=== PATIENT | female | born 1990 | race Caucasian/White ===

== ENCOUNTER 2020-02-26 13:15 | Emergency (ER) | payer OTHER, SELFPAY ==
[2020-02-26 13:30] VITALS: BP 103/67; PULSE 78; RESP 16; TEMP 38; O2SAT 98
--- NOTE | 2020-02-26 13:43 | ED.GENADULT ---
HPI - General Adult General Chief complaint: Upper Respiratory Infection Stated complaint: sore throat Time Seen by Provider: 02/26/20 13:43 Source: patient Mode of arrival: ambulatory Limitations: no limitations History of Present Illness HPI narrative: 29-year-old female patient presents to the [facility] with complaints of a sore throat, bilateral ear pain but not more so on the right than the left. Patient states she has had a mild cough as well. Denies any body aches or chills. Denies any fevers that she is aware of. Denies any abdominal pain, nausea, vomiting or diarrhea. Related Data Allergies Allergy/AdvReac Type Severity Reaction Status Date / Time acetaminophen AdvReac Intermediate Confusion Verified 02/26/20 13:48 oxycodone AdvReac Intermediate Confusion Verified 02/26/20 13:48 NICKEL Allergy Mild RASH AND Uncoded 04/15/19 15:13 LOCALIZED SWELLING Review of Systems Review of Systems: Narrative: CONSTITUTIONAL: Denies fever, chills, or sweats. EYES: Denies visual changes, redness, or discharge. ENT: Denies rhinorrhea, congestion, positive sore throat, and otalgia. CARDIOVASCULAR: Denies chest pain, palpitations, or edema. RESPIRATORY: Positive cough, denies dyspnea. GASTROINTESTINAL: Denies abdominal pain, nausea, vomiting, or diarrhea. GENITOURINARY: Denies dysuria or hematuria. SKIN: Denies rash or itching. MUSCULOSKELETAL: Denies back pain, joint pain, or myalgia. NEUROLOGIC: Denies headache, numbness, or weakness. PSYCHIATRIC: Denies anxiety or depression. PMFSH Comments At the time of my signature I agree with nursing past medical history, surgical, social, and family history. There is no relevant family history pertinent to the presenting complaint. Exam Narrative: Exam Narrative: GENERAL: Well-appearing, well-nourished, and in no acute distress. HEAD: Normocephalic, atraumatic. EYES: PERRLA and EOMI. ENT: Nares clear, no rhinorrhea or epistaxis. Mucous membranes moist. Posterior pharynx with no erythema, tonsil management, exudates or lesions present. The right TM does have some here erythema noted. The canal appears dry. NECK: Supple. No lymphadenopathy CHEST: Clear to auscultation. No respiratory distress. HEART: Regular rate and rhythm. No murmur heard. Normal peripheral pulses. ABDOMEN: Soft, nontender, nondistended, normal active bowel sounds. EXTREMITIES: Normal range of motion. No edema. SKIN: Warm, dry, no rash. NEURO: No focal deficits. Alert and oriented x3. Course Reevaluation(s) Reevaluation #1: Reevaluated patient after her swabs had resulted. Notified patient that she is negative for flu and strep today. Discussed with her it does appear that she has an infection to the right ear that we will go ahead and discharge her home with antibiotics for. Offered to send patient for Covid testing however she has declined at this time. Discussed with patient she can take Tylenol, ibuprofen as needed for pain. Patient verbalized understanding denies any other questions or concerns at this time. Date: 02/26/20 Time: 14:15 Vital Signs Vital signs: Vital Signs Temperature 38.0 C H 02/26/20 13:30 Pulse Rate 78 02/26/20 13:30 Respiratory Rate 16 02/26/20 13:30 Blood Pressure 103/67 02/26/20 13:30 Pulse Oximetry 98 02/26/20 13:30 Temperature 38.0 C H 02/26/20 13:30 Pulse Rate 78 02/26/20 13:30 Respiratory Rate 16 02/26/20 13:30 Blood Pressure 103/67 02/26/20 13:30 Pulse Oximetry 98 02/26/20 13:30 Vital signs reviewed Medical Decision Making Differential Diagnosis Differential Diagnosis: Differential diagnosis: Viral pharyngitis, pharyngitis, group A strep, infectious mononucleosis, gonococcal pharyngitis, exudative pharyngitis, oral candidiasis. Chronic allergies, postnasal drip, GERD, abscess formation, but glottitis, retropharyngeal abscess formation, or airway obstruction. Plan of care for patient is to swab patient for flu and strep. Discusse
== END 2020-02-26 14:19 | disposition home or self-care (01) ==
PROVIDERS: Emergency Provider Nurse Practitioner Family; PCP Nurse Practitioner Family
DX: H66.91 Otitis media, unspecified, right ear (principal)
CPT/HCPCS: 87081; 87804; 87880; 99213; G0463

== ENCOUNTER 2020-03-29 10:54 | Emergency (ER) | payer OTHER, SELFPAY ==
[2020-03-29 11:00] VITALS: BP 132/73; PULSE 103; RESP 18; TEMP 37.7; O2SAT 100
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
== END 2020-03-29 12:36 | disposition home or self-care (01) ==
PROVIDERS: Emergency Provider Registered Nurse
DX: J06.9 Acute upper respiratory infection, unspecified (principal); R10.13 Epigastric pain; R11.2 Nausea with vomiting, unspecified; R19.7 Diarrhea, unspecified; F17.210 Nicotine dependence, cigarettes, uncomplicated; J45.909 Unspecified asthma, uncomplicated
CPT/HCPCS: 87081; 87804; 87880; 99213; G0463

== ENCOUNTER 2020-06-29 08:20 | Emergency (ER) | payer OTHER, SELFPAY ==
[2020-06-29 08:28] VITALS: BP 120/72; PULSE 92; RESP 16; TEMP 36.9; O2SAT 100
--- NOTE | 2020-06-29 08:57 | ED.SKABFB ---
HPI - Skin/Abscess/Foreign Bdy General Chief complaint: Skin/Abscess/Foreign Body Stated complaint: rash all over Time Seen by Provider: 06/29/20 08:36 Source: patient and RN notes reviewed Mode of arrival: ambulatory Limitations: no limitations History of Present Illness HPI narrative: Patient presents today with a 4 to 5-day history of itching behind both ears. States itching and rash as spread to her face and bilateral arms today. She has been using Benadryl with mild relief. No new household products, foods, medications. No symptoms of other household members. MD complaint: rash Related Data Home Medications Medication Instructions Recorded Confirmed medroxyprogesterone 150 mg IM Q12M 06/29/20 06/29/20 terbinafine HCl 250 mg PO DAILY 06/29/20 06/29/20 Allergies Allergy/AdvReac Type Severity Reaction Status Date / Time acetaminophen AdvReac Intermediate Confusion Verified 06/29/20 08:24 oxycodone AdvReac Intermediate Confusion Verified 06/29/20 08:24 NICKEL Allergy Mild RASH AND Uncoded 06/29/20 08:24 LOCALIZED SWELLING Review of Systems Review of Systems: Narrative: CONSTITUTIONAL: Denies body aches, fever, chills, or sweats. EYES: Denies visual changes, redness, or discharge. ENT: Denies rhinorrhea, congestion, sore throat, or otalgia. CARDIOVASCULAR: Denies chest pain, palpitations, or edema. RESPIRATORY: Denies cough or dyspnea. GASTROINTESTINAL: Denies abdominal pain, nausea, vomiting, or diarrhea. GENITOURINARY: Denies dysuria or hematuria. SKIN: + Rash MUSCULOSKELETAL: Denies back pain, joint pain, or myalgia. NEUROLOGIC: Denies headache, numbness, tingling, or weakness. PSYCH: Denies depression or anxiety. [facility] Past Medical History Medical History (Updated 06/29/20 @ 09:01 by Tisha Suazo, [facility], ) Kidney stone Lipoma removed from upper back Right otitis media Surgical History Surgical History (Updated 03/30/20 @ 16:35 by Rubi Dale NP) H/O lithotripsy S/P ureteral stent placement Social History Social History (Updated 03/29/20 @ 11:53 by Rubi Dale NP) Smoking packs per day: 0.5 Smoking cigarettes per day: 10.0 Years smoked: 8 Smoking pack-years: 4.00 Smoking status: Current every day smoker Tobacco type: cigarettes Alcohol intake: current Gender identity (if verbalized by the patient): Female Comments At time of signature, I have reviewed and agree with nursing past medical, surgical, social and family history unless otherwise noted. Please see nursing chart for further information. There is no relevant family history pertinent to the presenting complaint Exam Narrative: Exam Narrative: GENERAL: Well-appearing, well-nourished, and in no acute distress. HEAD: Normocephalic, atraumatic. EYES: EOMI. No redness or drainage. Conjunctivae normal. ENT: Mucous membranes pink and moist. Nares clear. No rhinorrhea. TMs normal bilaterally. Throat normal. Uvula midline. NECK: Normal AROM. Supple. No lymphadenopathy. CHEST: No respiratory distress. Clear to auscultation. HEART: Regular rate and rhythm. No murmur appreciated. Normal peripheral pulses. EXTREMITIES: Normal range of motion. No edema. SKIN: Warm, dry. Capillary refill normal. Normal skin turgor. + Urticarial rash spread over both cheeks, in the bilateral postauricular areas, circumferentially around the neck, and scattered to the bilateral forearms and antecubital fossa NEURO: No focal deficits. Alert and oriented x3. Gait steady. PSYCH: Normal affect. No signs of depression or anxiety. Course Vital Signs Vital signs: Vital Signs Temperature 98.4 F 06/29/20 08:28 Pulse Rate 92 06/29/20 08:28 Respiratory Rate 16 06/29/20 08:28 Blood Pressure 120/72 06/29/20 08:28 Pulse Oximetry 100 06/29/20 08:28 Temperature 98.4 F 06/29/20 08:28 Pulse Rate 92 06/29/20 08:28 Respiratory Rate 16 06/29/20 08:28 Blood Pressure 120/72 06/29/20 08:28
== END 2020-06-29 09:05 | disposition home or self-care (01) ==
PROVIDERS: Emergency Provider Nurse Practitioner; PCP Family Medicine
DX: L50.9 Urticaria, unspecified (principal); F17.210 Nicotine dependence, cigarettes, uncomplicated
CPT/HCPCS: 99213; G0463

== ENCOUNTER 2021-03-11 11:01 | Emergency (ER) | payer OTHER, SELFPAY ==
[2021-03-11 11:07] VITALS: BP 113/81; PULSE 95; RESP 16; TEMP 37.4; O2SAT 100
--- NOTE | 2021-03-11 11:20 | ED.SKABFB ---
HPI - Skin/Abscess/Foreign Bdy General Chief complaint: Skin/Abscess/Foreign Body Stated complaint: Facial Swelling Time Seen by Provider: 03/11/21 11:20 Source: patient and RN notes reviewed Mode of arrival: ambulatory Limitations: no limitations History of Present Illness HPI narrative: 30-year-old female presents with concern for painful facial swelling to the right cheek. Reports the area started out as a pimple and has become larger, redder, tender with the pain spreading toward the cheek in the eye. Reports she squeezed it yesterday and got out a small amount of pus and clear fluid. Denies other intervention. Denies body aches, chills, sweats, fever. MD complaint: abscess/boil Related Data Home Medications Medication Instructions Recorded Confirmed albuterol 90 mcg INHALATION Q4H PRN 03/11/21 03/11/21 famotidine 20 mg PO Q8H 03/11/21 03/11/21 hyoscyamine 0.125 mg PO Q6H 03/11/21 03/11/21 omeprazole 20 mg PO BID 03/11/21 03/11/21 Allergies Allergy/AdvReac Type Severity Reaction Status Date / Time acetaminophen AdvReac Intermediate Confusion Verified 03/11/21 11:19 oxycodone AdvReac Intermediate Confusion Verified 03/11/21 11:19 NICKEL Allergy Mild RASH AND Uncoded 06/29/20 08:24 LOCALIZED SWELLING Review of Systems Review of Systems: CONSTITUTIONAL: Denies malaise, chills, sweats, or fever. EYES: Denies visual changes, redness, or discharge. ENT: Denies rhinorrhea, congestion, sinus pain, otalgia or sore throat. CARDIOVASCULAR: Denies chest pain, palpitations, or edema. RESPIRATORY: Denies cough or dyspnea. SKIN: Reports red tender bump with surrounding pain on the right cheek MUSCULOSKELETAL: Denies myalgia. NEUROLOGIC: Denies numbness, weakness, or headache. All systems reviewed & are unremarkable except as noted in HPI and below PMFSH Past Medical History Medical History (Updated 03/11/21 @ 11:49 by Lena Marin NP) Kidney stone Lipoma removed from upper back Right otitis media Surgical History Surgical History (Updated 03/30/20 @ 16:35 by Rubi Dale NP) H/O lithotripsy S/P ureteral stent placement Social History Social History (Updated 03/29/20 @ 11:53 by Rubi Dale NP) Smoking packs per day: 0.5 Smoking cigarettes per day: 10.0 Years smoked: 8 Smoking pack-years: 4.00 Smoking status: Current every day smoker Tobacco type: cigarettes Alcohol intake: current Gender identity (if verbalized by the patient): Female Comments At time of signature, agree with nursing past medical, surgical, social and family history. There is no relevant family history pertinent to the presenting complaint Exam Narrative: GENERAL: Well-appearing, well-nourished, and in no acute distress. HEAD: Normocephalic, atraumatic. EYES: PERRLA, conjunctivae clear, and EOMI. ENT: Mucous membranes moist. Oropharynx without edema, erythema or lesions. NECK: Supple. No lymphadenopathy CHEST: Clear to auscultation. No respiratory distress. HEART: Regular rate and rhythm. SKIN: Warm, dry. Patches of erythema and edema NEURO: Alert and oriented x3. PSYCH: Normal mood and affect Course Course Emergency Course: Patient is aware of diagnosis, understands and agrees to treatment plan. Anticipatory guidance given. Patient agrees to follow-up as directed and is aware of reasons to seek care at the emergency department. Portions of this record may have been created with voice recognition software Vital Signs Vital signs: Vital Signs Temperature 99.4 F 03/11/21 11:07 Pulse Rate 95 03/11/21 11:07 Respiratory Rate 16 03/11/21 11:07 Blood Pressure 113/81 03/11/21 11:07 Pulse Oximetry 100 03/11/21 11:07 Temperature 99.4 F 03/11/21 11:07 Pulse Rate 95 03/11/21 11:07 Respiratory Rate 16 03/11/21 11:07 Blood Pressure 113/81 03/11/21 11:07 Pulse Oximetry 100 03/11/21 11:07 Reviewed. Procedures Abscess I/D face: Date of Incision
[2021-03-11 11:23] VITALS: BP 113/81; PULSE 95; RESP 16; TEMP 37.4; O2SAT 100
--- NOTE | 2021-03-11 11:38 | PC.NURSE ---
1138-- RN ADMINISTERED ROCEPHIN 500 MG IM TO RT GLUTEAL ORDERED BY PROVIDER. MEDICATION WOULD NOT SCAN IN COMPUTER.
== END 2021-03-11 11:56 | disposition home or self-care (01) ==
PROVIDERS: Emergency Provider Nurse Practitioner
DX: L02.01 Cutaneous abscess of face (principal); F17.210 Nicotine dependence, cigarettes, uncomplicated
CPT/HCPCS: 10160; 96372; 99213; G0463; J0696

== ENCOUNTER 2021-08-03 12:18 | Emergency (ER) | payer OTHER, SELFPAY ==
--- NOTE | 2021-08-03 12:20 | ED.URI ---
HPI - URI/Sore Throat General Chief Complaint: Upper Respiratory Infection Stated Complaint: Cough Time Seen by Provider: 08/03/21 12:21 Source: patient and RN notes reviewed History of Present Illness HPI Narrative: Patient is a 31-year-old female who presents the urgent care with complaints of cough that started 3 days ago. There are 2 other family members in the home that are positive for influenza A. Patient denies of any fevers, nausea or vomiting. Patient has not taken anything [id number] for her symptoms. No other acute complaints. No acute distress noted. Patient aware of the plan of care. Some parts of this dictation were generated by voice recognition software and may contain typographical and/or grammatical inaccuracies. Related Data Home Medications Medication Instructions Recorded Confirmed albuterol 90 mcg INHALATION Q4H PRN 03/11/21 03/11/21 famotidine 20 mg PO Q8H 03/11/21 03/11/21 Allergies Allergy/AdvReac Type Severity Reaction Status Date / Time acetaminophen AdvReac Intermediate Confusion Verified 08/03/21 12:23 oxycodone AdvReac Intermediate Confusion Verified 08/03/21 12:23 NICKEL Allergy Mild RASH AND Uncoded 08/03/21 12:45 LOCALIZED SWELLING Review of Systems Review of Systems: CONSTITUTIONAL: Denies fever, chills, or sweats. EYES: Denies visual changes, redness, or discharge. ENT: Denies rhinorrhea, congestion, sore throat, or otalgia. CARDIOVASCULAR: Denies chest pain, palpitations, or edema. RESPIRATORY: Reports of cough without dyspnea GASTROINTESTINAL: Denies abdominal pain, nausea, vomiting, or diarrhea. GENITOURINARY: Denies dysuria or hematuria. SKIN: Denies rash or itching. MUSCULOSKELETAL: Denies back pain, joint pain, or myalgia. NEUROLOGIC: Denies headache, numbness, or weakness. All other systems reviewed are negative, except as documented in HPI. [facility] Past Medical History Medical History (Updated 08/03/21 @ 12:56 by TODD Gutierrez) Kidney stone Lipoma removed from upper back Right otitis media Surgical History Surgical History (Updated 03/30/20 @ 16:35 by Rubi Dale NP) H/O lithotripsy S/P ureteral stent placement Social History Social History (Updated 03/29/20 @ 11:53 by Rubi Dale NP) Smoking packs per day: 0.5 Smoking cigarettes per day: 10.0 Years smoked: 8 Smoking pack-years: 4.00 Smoking status: Current every day smoker Tobacco type: cigarettes Alcohol intake: current Gender identity (if verbalized by the patient): Female Comments At the time of my signature, I reviewed and agree with the nursing past medical, surgical, social, and family history. There is no relevant family history pertinent to the patient complaint. Exam Narrative: GENERAL: This is a well-nourished, well-developed patient, in no apparent distress. HEAD: normocephalic, atraumatic. EYES: PERRL. Sclera clear/white. Vision is grossly intact. EARS: External ears normal, auditory canals clear and without drainage, TMs normal without perforation. Hearing grossly intact. NOSE: External nose normal with no obvious nasal discharge, nares without redness, no rhinorrhea. THROAT: Mucous membranes moist, posterior pharynx clear. Mild postnasal drainage NECK: Neck supple CARDIOVASCULAR: Regular rate and rhythm without murmurs, gallops, or rubs. RESPIRATORY: Clear to auscultation. Breath sounds equal bilaterally. No wheezes, rales, or rhonchi. SKIN: warm, intact with no suspicious lesions or rash, good texture and turgor. NEURO: awake, alert, and oriented to person, place and time. There were no obvious focal neurologic abnormalities. EXTREMITIES: No clubbing, cyanosis, or edema. Course Course Level of Care: Express Care Visit Vital Signs Vital signs: Vital Signs Temperature 99.2 F 08/03/21 12:28 Pulse Rate 72 08/03/21 12:28 Respiratory Rate 16 08/03/21 12:28 Blood Pressure 110/70 08/03/21 12:28 Pulse Oximetry 100
[2021-08-03 12:28] VITALS: BP 110/70; PULSE 72; RESP 16; TEMP 37.3; O2SAT 100
== END 2021-08-03 12:54 | disposition home or self-care (01) ==
PROVIDERS: Emergency Provider Nurse Practitioner Family
DX: R05.9 Cough, unspecified (principal); Z20.828 Contact with and (suspected) exposure to other viral communicable diseases; F17.210 Nicotine dependence, cigarettes, uncomplicated
CPT/HCPCS: 87804; 99213; G0463

== ENCOUNTER 2022-01-26 09:41 | Emergency (ER) | payer OTHER, SELFPAY ==
--- NOTE | 2022-01-26 09:44 | ED.URI ---
HPI - URI/Sore Throat General Chief Complaint: Upper Respiratory Infection Stated Complaint: Cough Congestion headache Time Seen by Provider: 01/26/22 09:44 Source: patient Mode of arrival: ambulatory Limitations: no limitations History of Present Illness HPI Narrative: Ms. farrar is a 31-year-old female patient presenting to the clinic today with complaints of cough, congestion, and headache x4 days. She reports also having aches in her back. She denies any urinary symptoms. She reports she has had sinus headaches. She denies any known fevers. She also has 2 sick children in the clinic today with her MD elicited complaint: cough, nasal congestion and other (Headache) Related Data Allergies Allergy/AdvReac Type Severity Reaction Status Date / Time acetaminophen AdvReac Intermediate Confusion Verified 01/26/22 10:00 oxycodone AdvReac Intermediate Confusion Verified 01/26/22 10:00 NICKEL Allergy Mild RASH AND Uncoded 08/03/21 12:45 LOCALIZED SWELLING Review of Systems Review of Systems: Pertinent positives per HPI. Patient denies any fever, chills, rash, headache, visual changes, dizziness, shortness of breath, chest pain, palpitations, nausea, vomiting, diarrhea, constipation, abdominal pain, or any urinary issues. [facility] Past Medical History Medical History Kidney stone Lipoma removed from upper back Right otitis media Surgical History Surgical History H/O lithotripsy S/P ureteral stent placement Social History Social History Smoking packs per day: 0.5 Smoking cigarettes per day: 10.0 Years smoked: 8 Smoking pack-years: 4.00 Smoking status: Current every day smoker Tobacco type: cigarettes Alcohol intake: current Gender identity (if verbalized by the patient): Female Comments At the time of my signature, I reviewed and agree with the nursing past medical, surgical, social, and family history. There is no relevant family history pertinent to the patient complaint. Exam Narrative: General: Well-developed, well nourished, in no apparent distress Head: Normocephalic, atraumatic Eyes: Pupils equally round and reactive to light bilaterally, EOM intact, sclera and conjunctive clear, no discharge, lids normal Ears: TMs intact, dull, red, ear canals clear, no drainage, grossly hearing normal. Nose: Nares patent, clear nasal discharge, mild inflammation, mild maxillary and frontal sinus tenderness. Mouth: Oral pharynx without lesions or masses, good dentition, MMM. Postnasal drip Neck: Supple, trachea midline, no enlargement of anterior or posterior cervical nodes, no thyroid masses or goiter palpable. Cardio: Regular rate and rhythm, s1 and s2 normal, no murmur appreciated. Resp: Clear to auscultation bilaterally, no rhonchi, rales, wheezing or rubs Course Course Emergency Course: Portions of this record may have been created with voice recognition software. Level of Care: Express Care Visit Vital Signs Vital signs: Vital signs reviewed MDM - URI/Sore Throat MDM Narrative Medical decision making narrative: At the time of visit patient is resting comfortably on the exam table. COVID and influenza testing was obtained in the clinic today. All testing was negative in the clinic today. I suspect the patient has sinusitis with viral syndrome. Supportive measures were discussed with the patient she voiced understanding of discharge instructions and agrees to treatment plan. Prescription was sent for prednisone. Differential Diagnosis Differential diagnosis: Likely upper respiratory infection, otitis media, sinusitis, viral infection, bronchitis, influenza, pharyngitis and other (COVID) Discharge Plan Discharge Clinical Impression: Acute upper respiratory infection Sinusitis Qualifiers: Sin
[2022-01-26 09:46] VITALS: BP 106/76; PULSE 86; RESP 14; TEMP 36.9; O2SAT 100
== END 2022-01-26 10:56 | disposition home or self-care (01) ==
PROVIDERS: Emergency Provider Nurse Practitioner Family; PCP Family Medicine
DX: J06.9 Acute upper respiratory infection, unspecified (principal); J01.10 Acute frontal sinusitis, unspecified; Z20.822 Contact with and (suspected) exposure to COVID-19; F17.210 Nicotine dependence, cigarettes, uncomplicated
CPT/HCPCS: 87426; 87804; 99213; C9803; G0463

== ENCOUNTER 2022-02-08 08:33 | Emergency (ER) | payer OTHER, SELFPAY ==
[2022-02-08 08:39] VITALS: BP 105/76; PULSE 83; RESP 16; TEMP 36.8; O2SAT 100
--- NOTE | 2022-02-08 08:44 | ED.EYEPROB ---
HPI - Eye Problem General Chief complaint: Eye Problems Stated complaint: Eye Problem Time Seen by Provider: 02/08/22 08:44 Source: patient, RN notes reviewed and old records reviewed Mode of arrival: ambulatory Limitations: no limitations History of Present Illness HPI Narrative: 31-year-old female who presents to [facility] with complaints of redness itching of eye which started originally yesterday on her right eye. This morning she woke with both eyes matted with yellowish drainage, and itching to bilateral eyes. She has been using warm compresses to her eyes without improvement. Denies any fevers chills or sweats was previously treated for URI on 01/26/2022. Visual acuity 20/20 bilateral eyes with no corrective lenses. MD chief complaint: eye redness Onset (ago): day(s) (1) Eye Symptoms: redness, itching and discharge Treatments Prior to Arrival: other (warm compresses) Related Data Allergies Allergy/AdvReac Type Severity Reaction Status Date / Time acetaminophen AdvReac Intermediate Confusion Verified 02/08/22 08:52 oxycodone AdvReac Intermediate Confusion Verified 02/08/22 08:52 NICKEL Allergy Mild RASH AND Uncoded 02/08/22 08:52 LOCALIZED SWELLING Review of Systems Review of Systems: CONSTITUTIONAL: Denies fever, chills, or sweats. EYES: Denies visual changes. Reports redness, irritation, discharge bilateral eyes ENT: Reports rhinorrhea, congestion, no sore throat, or otalgia. CARDIOVASCULAR: Denies chest pain, palpitations, or edema. RESPIRATORY: Reports cough no dyspnea. SKIN: Denies rash or itching. NEUROLOGIC: Denies headache All systems reviewed & are unremarkable except as noted in HPI and below PMFSH Past Medical History Medical History Kidney stone Lipoma removed from upper back Right otitis media Surgical History Surgical History H/O lithotripsy S/P ureteral stent placement Social History Social History (Updated 02/08/22 @ 23:53 by Rubi Dale NP) Smoking packs per day: 0.5 Smoking cigarettes per day: 10.0 Years smoked: 8 Smoking pack-years: 4.00 Smoking status: Current every day smoker Tobacco type: cigarettes and e-cigarettes/vaping Alcohol intake: current Gender identity (if verbalized by the patient): Female Comments At time of signature, agree with nursing past medical, surgical, social and family history. There is no relevant family history pertinent to the presenting complaint Exam Narrative: GENERAL: Well-appearing, well-nourished, and in no acute distress. HEAD: Normocephalic, atraumatic. EYES: PERRLA and EOMI. Upper and lower eyelids unremarkable. No periorbital cellulitis noted. Sclera and conjunctivae injected, yellowish drainage noted to bilateral eyes ENT: Nares clear, clear rhinorrhea no epistaxis. Mucous membranes moist.TM's normal with good light reflex, throat pink with no swelling. CHEST: Clear to auscultation. No respiratory distress.SAO2 100% on room air HEART: Regular rate and rhythm. No murmur heard. Normal peripheral pulses. SKIN: Warm, dry, no rash. NEURO: No focal deficits. Alert and oriented x3. Course Course Emergency Course: Patient is aware of diagnosis, understands and agrees to treatment plan. Anticipatory guidance given. Patient agrees to follow-up as directed and is aware of reasons to seek care at the emergency department. Portions of this record may have been created with voice recognition software Level of Care: Express Care Visit Vital Signs Vital signs: Vital Signs Temperature 36.8 C 02/08/22 08:39 Pulse Rate 83 02/08/22 08:39 Respiratory Rate 16 02/08/22 08:39 Blood Pressure 105/76 02/08/22 08:39 Pulse Oximetry 100 02/08/22 08:39 Oxygen Delivery Room Air 02/08/22 08:39 Temperature 36.8 C 02/08/22 08:39 Pulse Rate 83 02/08/22 08:39 Respiratory Rate 16 02/08
== END 2022-02-08 09:15 | disposition home or self-care (01) ==
PROVIDERS: Emergency Provider Registered Nurse; PCP Family Medicine
DX: H10.9 Unspecified conjunctivitis (principal); F17.210 Nicotine dependence, cigarettes, uncomplicated; F17.290 Nicotine dependence, other tobacco product, uncomplicated
CPT/HCPCS: 99213; G0463

== ENCOUNTER 2022-07-29 09:32 | Emergency (ER) | payer OTHER, SELFPAY ==
[2022-07-29 09:37] VITALS: BP 104/74; PULSE 89; RESP 18; TEMP 37; O2SAT 100
--- NOTE | 2022-07-29 10:02 | ED.URI ---
HPI - URI/Sore Throat General Chief Complaint: Upper Respiratory Infection Stated Complaint: Sore Throat Time Seen by Provider: 07/29/22 10:02 History of Present Illness HPI Narrative: Patient presents with sore throat. Patient denies any other symptoms no trouble swallowing and no drooling. Patient is not taking anything for her symptoms. Related Data Home Medications Medication Instructions Recorded Confirmed No Home Medications 07/29/22 07/29/22 Allergies Allergy/AdvReac Type Severity Reaction Status Date / Time acetaminophen AdvReac Intermediate Confusion Verified 07/29/22 09:57 oxycodone AdvReac Intermediate Confusion Verified 07/29/22 09:57 NICKEL Allergy Mild RASH AND Uncoded 02/08/22 08:52 LOCALIZED SWELLING Review of Systems Review of Systems: CONSTITUTIONAL: Denies chills, or sweats. Reports fever and generalized body aches EYES: Denies visual changes, redness, or discharge. ENT: Denies otalgia. Reports nasal congestion runny nose and sore throat CARDIOVASCULAR: Denies chest pain, palpitations, or edema. RESPIRATORY: Denies dyspnea. Reports occasional cough GASTROINTESTINAL: Denies abdominal pain, nausea, vomiting, or diarrhea. GENITOURINARY: Denies dysuria or hematuria. SKIN: Denies rash or itching. MUSCULOSKELETAL: Denies back pain, joint pain, or myalgia. Reports generalized body aches NEUROLOGIC: Denies headache, numbness, or weakness. PSYCHIATRIC: Denies anxiety or depression. [facility] Past Medical History Medical History Kidney stone Lipoma removed from upper back Right otitis media Surgical History Surgical History H/O lithotripsy S/P ureteral stent placement Social History Social History (Updated 02/08/22 @ 23:53 by Rubi Dale NP) Smoking packs per day: 0.5 Smoking cigarettes per day: 10.0 Years smoked: 8 Smoking pack-years: 4.00 Smoking status: Current every day smoker Tobacco type: cigarettes and e-cigarettes/vaping Alcohol intake: current Gender identity (if verbalized by the patient): Female Comments At time of signature, agree with nursing past medical, surgical, social and family history. There is no relevant family history pertinent to the presenting complaint Exam Narrative: My URI exam The patient is a well-developed, well-nourished in no acute distress. SKIN: Skin is warm and dry without erythema, swelling or exudate. There is good turgor. No tenting. HEAD: Atraumatic. Normocephalic. No temporal or scalp tenderness. EYES: Moist and bright. Sclera and conjunctivae normal. No discharge. PERRLA. Extraocular motions intact. Gross visual acuity intact. EARS: Pinna is normal shape and contour. Clear external auditory canals. TM pearly benavidez with good cone of light, no erythema or suppuration. Bilateral cerumen noted no gross hearing deficit. NOSE: pink, moist mucosa with good air movement. Clear rhinorrhea without nasal flaring. Septum midline. Mouth: moist mucous membranes. THROAT; mild erythema noted to posterior oropharynx with moderate postnasal drainage. Without exudate or ulceration.. Uvula midline. Normal movement of soft palate. NECK: Supple and nontender with full range of motion without discomfort. No meningeal signs. LUNGS: Equal and bilateral breath sounds without wheezes, rales or rhonchi. CHEST: The chest wall is without retractions or use of accessory muscles. HEART: Has a regular rate and rhythm without murmur, gallops, click or rub. ABDOMEN: Soft, nontender with positive active bowel sounds. No rebound tenderness. EXTREMITIES: Without cyanosis, clubbing or edema. Equal 2+ distal pulses and 2 second capillary refill noted. NEUROLOGIC: alert, active, . The patient moves all extremities with normal muscle strength. Normal muscle tone is noted. Normal coordination is noted. NO focal neurological findings noted. Cou
== END 2022-07-29 10:40 | disposition home or self-care (01) ==
PROVIDERS: Emergency Provider Nurse Practitioner Family; PCP Family Medicine
DX: J02.9 Acute pharyngitis, unspecified (principal); J06.9 Acute upper respiratory infection, unspecified; F17.210 Nicotine dependence, cigarettes, uncomplicated; F17.290 Nicotine dependence, other tobacco product, uncomplicated; Z96.0 Presence of urogenital implants
CPT/HCPCS: 87081; 87880; 99213; G0463

== ENCOUNTER 2023-01-26 09:13 | Emergency (ER) | payer OTHER, SELFPAY ==
[2023-01-26 09:19] VITALS: BP 120/71; PULSE 81; RESP 16; TEMP 36.9; O2SAT 99
--- NOTE | 2023-01-26 09:49 | ED.URI ---
HPI - URI/Sore Throat General Chief Complaint: Upper Respiratory Infection Stated Complaint: cough/sore throat History of Present Illness HPI Narrative: Patient presents with a sore throat. No trouble swallowing no drooling denies any other symptoms. Related Data Allergies Allergy/AdvReac Type Severity Reaction Status Date / Time nickel Allergy Intermediate Swelling Verified 01/26/23 09:38 acetaminophen AdvReac Intermediate Confusion Verified 01/26/23 09:37 oxycodone AdvReac Intermediate Confusion Verified 01/26/23 09:37 Review of Systems Review of Systems: CONSTITUTIONAL: Denies chills, or sweats. Reports fever and generalized body aches EYES: Denies visual changes, redness, or discharge. ENT: Denies otalgia. Reports nasal congestion runny nose and sore throat CARDIOVASCULAR: Denies chest pain, palpitations, or edema. RESPIRATORY: Denies dyspnea. Reports occasional cough GASTROINTESTINAL: Denies abdominal pain, nausea, vomiting, or diarrhea. GENITOURINARY: Denies dysuria or hematuria. SKIN: Denies rash or itching. MUSCULOSKELETAL: Denies back pain, joint pain, or myalgia. Reports generalized body aches NEUROLOGIC: Denies headache, numbness, or weakness. PSYCHIATRIC: Denies anxiety or depression. [facility] Past Medical History Medical History Kidney stone Lipoma removed from upper back Right otitis media Surgical History Surgical History H/O lithotripsy S/P ureteral stent placement Social History Social History (Updated 02/08/22 @ 23:53 by Rubi Dale NP) Smoking packs per day: 0.5 Smoking cigarettes per day: 10.0 Years smoked: 8 Smoking pack-years: 4.00 Smoking status: Current every day smoker Tobacco type: cigarettes and e-cigarettes/vaping Alcohol intake: current Gender identity (if verbalized by the patient): Female Comments At time of signature, agree with nursing past medical, surgical, social and family history. There is no relevant family history pertinent to the presenting complaint Exam Narrative: The patient is a well-developed, well-nourished in no acute distress. SKIN: Skin is warm and dry without erythema, swelling or exudate. There is good turgor. No tenting. HEAD: Atraumatic. Normocephalic. No temporal or scalp tenderness. EYES: Moist and bright. Sclera and conjunctivae normal. No discharge. PERRLA. Extraocular motions intact. Gross visual acuity intact. EARS: Pinna is normal shape and contour. Clear external auditory canals. TM pearly benavidez with good cone of light, no erythema or suppuration. Bilateral cerumen noted no gross hearing deficit. NOSE: pink, moist mucosa with good air movement. Clear rhinorrhea without nasal flaring. Septum midline. Mouth: moist mucous membranes. THROAT; mild erythema noted to posterior oropharynx with moderate postnasal drainage. Without exudate or ulceration.. Uvula midline. Normal movement of soft palate. NECK: Supple and nontender with full range of motion without discomfort. No meningeal signs. LUNGS: Equal and bilateral breath sounds without wheezes, rales or rhonchi. CHEST: The chest wall is without retractions or use of accessory muscles. HEART: Has a regular rate and rhythm without murmur, gallops, click or rub. ABDOMEN: Soft, nontender with positive active bowel sounds. No rebound tenderness. EXTREMITIES: Without cyanosis, clubbing or edema. Equal 2+ distal pulses and 2 second capillary refill noted. NEUROLOGIC: alert, active, . The patient moves all extremities with normal muscle strength. Normal muscle tone is noted. Normal coordination is noted. NO focal neurological findings noted. Course Course Level of Care: Express Care Visit Vital Signs Vital signs: Vital Signs Temperature 36.9 C 01/26/23 09:19 Pulse Rate 81 01/26/23 09:19 Respiratory Rate 16 01/26/23 09:19 Blood Pressure 120/71
== END 2023-01-26 09:56 | disposition home or self-care (01) ==
PROVIDERS: Emergency Provider Nurse Practitioner Family; PCP Family Medicine
DX: J02.0 Streptococcal pharyngitis (principal); F17.210 Nicotine dependence, cigarettes, uncomplicated
CPT/HCPCS: 87880; 99213; G0463

== ENCOUNTER 2023-10-01 08:30 | Emergency (ER) | payer OTHER, SELFPAY ==
--- NOTE | 2023-10-01 08:35 | ED.GENADULT ---
HPI - General Adult General Chief complaint: Nausea/Vomiting/Diarrhea Stated complaint: nausea/chills Time Seen by Provider: 10/01/23 08:36 Source: patient, RN notes reviewed and old records reviewed Mode of arrival: ambulatory Limitations: no limitations History of Present Illness HPI narrative: 33-year-old female to Express Care for complaint increased sweating, diarrhea and vomiting x1 since this morning. Patient denies fever,, shortness of breath, abdominal pain. Patient requesting work note. Respirations even nonlabored. Patient in no acute distress. Related Data Allergies Allergy/AdvReac Type Severity Reaction Status Date / Time nickel Allergy Intermediate Swelling Verified 01/26/23 09:38 acetaminophen AdvReac Intermediate Confusion Verified 01/26/23 09:37 oxycodone AdvReac Intermediate Confusion Verified 01/26/23 09:37 Review of Systems Review of Systems: All systems reviewed & are unremarkable except as noted in HPI and below Constitutional: Constitutional: Reports as per HPI and Reports excessive sweating Eyes: Eyes: Reports no additional eye complaints ENT: Reports system reviewed and no additional complaints, except as documented Cardiovascular: Cardiovascular: Reports no additional cardiovascular complaints, Denies chest pain and Denies dyspnea Respiratory: Respiratory: Reports no additional respiratory complaints, Denies cough and Denies dyspnea Gastrointestinal: Gastrointestinal: Reports diarrhea, Reports nausea and Reports vomiting Musculoskeletal: Musculoskeletal: Reports no additional musculoskeletal complaints Neurologic: Reports system reviewed and no additional complaints, except as documented Psychiatric: Psychiatric: Reports no additional psychiatric complaints [facility] Past Medical History Medical History Kidney stone Lipoma removed from upper back Right otitis media Surgical History Surgical History H/O lithotripsy S/P ureteral stent placement Social History Social History Smoking packs per day: 0.5 Smoking cigarettes per day: 10.0 Years smoked: 8 Smoking pack-years: 4.00 Smoking status: Current every day smoker Tobacco type: cigarettes and e-cigarettes/vaping Alcohol intake: current Gender identity (if verbalized by the patient): Female Comments At the time of my signature, I reviewed and agree with the nursing past medical, surgical, social, and family history. There is no relevant family history pertinent to the patient complaint. Exam Const: General: cooperative, no acute distress, alert, tired appearing and well nourished Nutritional Appearance: well nourished Orientation/consciousness: patient oriented x3 Limitations: no limitations HENMT: Head: normal to inspection Ears: external ears normal Face/Nose/Sinus: Normal external nose present, Normal nares present, normal facial exam, No erythema and No edema Face and sinus: normal facial exam, no erythema and no edema Mouth: Yes Normal oral and palatal mucosa present Eyes: General: appearance normal, both eyes and all related structures Neck: Neck: normal visual inspection, full ROM and no meningeal signs Lymphatic: no lymphadenopathy noted and no lymphedema noted Chest: Chest palpation & inspection: normal inspection of the chest Resp: Effort & Inspection: normal respiratory effort and able to speak in complete sentences Auscultation: clear to auscultation bilaterally Cardio: Jugular venous distension: no JVD Rate: regular rate Rhythm: regular rhythm GI: Inspection: normal to inspection GI Palp: No abdominal tenderness Auscultation: normal bowel sounds Back/Spine/Pelvis: Cervical Spine: cervical ROM normal Skin: General skin exam: normal color, no rashes or lesions noted and turgor normal Neuro: General: patie
[2023-10-01 08:36] VITALS: BP 116/74; PULSE 71; RESP 20; TEMP 37.1; O2SAT 100
== END 2023-10-01 09:07 | disposition home or self-care (01) ==
PROVIDERS: Emergency Provider Nurse Practitioner Family; PCP Family Medicine
DX: K52.9 Noninfective gastroenteritis and colitis, unspecified (principal); F17.210 Nicotine dependence, cigarettes, uncomplicated; F17.290 Nicotine dependence, other tobacco product, uncomplicated; Z96.0 Presence of urogenital implants
CPT/HCPCS: 99211; G0463

== ENCOUNTER 2023-12-13 08:30 | Emergency (ER) | payer OTHER, SELFPAY ==
[2023-12-13 08:38] VITALS: BP 106/67; PULSE 100; RESP 20; TEMP 37; O2SAT 100
--- NOTE | 2023-12-13 09:06 | ED.URI ---
HPI - URI/Sore Throat General Chief Complaint: Upper Respiratory Infection Stated Complaint: poss sinus infection Time Seen by Provider: 12/13/23 09:06 Source: patient, RN notes reviewed and old records reviewed Mode of arrival: ambulatory Limitations: no limitations History of Present Illness HPI Narrative: 33-year-old female presents to the [facility] with complaints of sinus congestion, cough that started 2-3 days ago. Had taken DayQuil and NyQuil, 1 dose of Sudafed yesterday. Denies fevers. Chest pain, abdominal pain Related Data Home Medications Medication Instructions Recorded Confirmed No Home Medications 12/13/23 12/13/23 Allergies Allergy/AdvReac Type Severity Reaction Status Date / Time nickel Allergy Intermediate Swelling Verified 12/13/23 08:51 acetaminophen AdvReac Intermediate Confusion Verified 12/13/23 08:51 oxycodone AdvReac Intermediate Confusion Verified 12/13/23 08:51 Review of Systems Review of Systems: All systems reviewed & are unremarkable except as noted in HPI and below Constitutional: Constitutional: Reports no additional constitutional complaints Eyes: Eyes: Reports no additional eye complaints ENT: Reports as per HPI and Reports nasal congestion Cardiovascular: Cardiovascular: Reports no additional cardiovascular complaints, Denies chest pain and Denies dyspnea Respiratory: Respiratory: Reports as per HPI, Denies chest congestion, Reports cough and Denies dyspnea Gastrointestinal: Gastrointestinal: Reports no additional gastrointestinal complaints, Denies abdominal pain, Denies nausea and Denies vomiting Musculoskeletal: Musculoskeletal: Reports no additional musculoskeletal complaints Integumentary/Breasts: Skin/Breast: Reports system reviewed and no additional complaints, except as docu Neurologic: Reports system reviewed and no additional complaints, except as documented Psychiatric: Psychiatric: Reports no additional psychiatric complaints Allergic/Immunologic: Allergic/Immunologic: Reports no additional allergic/immunologic complaints [facility] Past Medical History Medical History Kidney stone Lipoma removed from upper back Right otitis media Surgical History Surgical History H/O lithotripsy S/P ureteral stent placement Social History Social History Smoking packs per day: 0.5 Smoking cigarettes per day: 10.0 Years smoked: 8 Smoking pack-years: 4.00 Smoking status: Current every day smoker Tobacco type: cigarettes and e-cigarettes/vaping Alcohol intake: current Gender identity (if verbalized by the patient): Female Comments At the time of my signature, I reviewed and agree with the nursing past medical, surgical, social, and family history. There is no relevant family history pertinent to the patient complaint. Exam Const: General: cooperative, healthy appearing, comfortable, no acute distress, well developed, alert and well nourished Nutritional Appearance: well nourished Orientation/consciousness: patient oriented x3 Limitations: no limitations HENMT: Head: normal to inspection Ears: hearing grossly normal bilaterally, external ears normal, TM's normal bilaterally, EAC's normal, mastoids normal and no periauricular adenopathy Face/Nose/Sinus: Normal external nose present, Normal nares present, Normal nasal mucous membranes and turbinates present, normal facial exam and face symmetric Face and sinus: normal facial exam and face symmetric Mouth: Yes Normal oral and palatal mucosa present, Yes lip normal and Yes tongue normal Throat: tonsils normal, uvula midline, postnasal drainage and no uvular edema Eyes: General: appearance normal, both eyes and all related structures Alignment and Position: alignment normal Periorbital: periorbital findings normal Pupils: Equal, round and react
[2023-12-13 09:26] LABS: EDINFLUASCREEN Negative; EDINFLUBSCREEN Negative
== END 2023-12-13 09:20 | disposition home or self-care (01) ==
PROVIDERS: Emergency Provider Nurse Practitioner; PCP Family Medicine
DX: R09.82 Postnasal drip (principal); J06.9 Acute upper respiratory infection, unspecified; J01.90 Acute sinusitis, unspecified; Z20.822 Contact with and (suspected) exposure to COVID-19; F17.210 Nicotine dependence, cigarettes, uncomplicated; F17.290 Nicotine dependence, other tobacco product, uncomplicated
CPT/HCPCS: 87426; 87804; 99213; G0463

== ENCOUNTER 2024-02-05 16:27 | Emergency (ER) | payer OTHER, SELFPAY ==
[2024-02-05 16:35] VITALS: BP 111/74; RESP 16; TEMP 37.7; O2SAT 100
--- NOTE | 2024-02-05 16:47 | ED.HA ---
HPI - Headache General Chief Complaint: Headache Stated Complaint: Headache Time Seen by Provider: 02/05/24 16:47 Source: patient, RN notes reviewed and old records reviewed Mode of arrival: ambulatory Limitations: no limitations History of Present Illness HPI Narrative: 33 year old female who presents to [facility] with complaints of migraine headache which started on Sunday with no relief with prescribed medication. Patient reports that she has pain to the back sides of her head and pressure behind her eyes. Patient took last dose of Imitrex at 1330 with no minimal decrease in her pain. Patient does have history of migraines. Patient reports some nausea and also sound sensitivity. MD elicited complaint: migraine Pertinent past history: migraines Onset (ago): day(s) (day 3 of symptoms) Pain scale (0-10): 8 Treatments prior to arrival: migraine medication Related Data Home Medications Medication Instructions Recorded Confirmed albuterol sulfate 90 mcg/actuation inhalation 02/05/24 aerosol inhaler sumatriptan succinate 50 mg tablet mg PO 02/05/24 tramadol 50 mg tablet mg 02/05/24 Allergies Allergy/AdvReac Type Severity Reaction Status Date / Time nickel Allergy Intermediate Swelling Verified 02/05/24 16:34 acetaminophen AdvReac Intermediate Confusion Verified 02/05/24 16:34 oxycodone AdvReac Intermediate Confusion Verified 02/05/24 16:34 Review of Systems Review of Systems: CONSTITUTIONAL: Denies fever, chills, or sweats. EYES: Denies visual changes, redness, or discharge. ENT: Denies rhinorrhea, congestion, sore throat, or otalgia. CARDIOVASCULAR: Denies chest pain, palpitations, or edema. RESPIRATORY: Denies cough or dyspnea. GASTROINTESTINAL: Denies abdominal pain, positive for nausea,no vomiting, or diarrhea. GENITOURINARY: Denies dysuria or hematuria. SKIN: Denies rash or itching. MUSCULOSKELETAL: Denies back pain, joint pain, or myalgia. NEUROLOGIC: Reports migraine headache,no numbness, or weakness is sound sensitive PSYCHIATRIC: Denies anxiety or depression. 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 There is no relevant family history pertinent to the presenting complaint Exam Narrative: GENERAL: Well-appearing, well-nourished, and in some acute distress. HEAD: Normocephalic, atraumatic. EYES: PERRLA and EOMI.no nystagmus ENT: Nares clear, no rhinorrhea or epistaxis. Mucous membranes moist.TM's normal, throat pink with no swelling NECK: Supple. no lymphadenopathy CHEST: Clear to auscultation. No respiratory distress.SAO2 100% on room air HEART: Regular rate and rhythm. No murmur heard. Normal peripheral pulses. ABDOMEN: Soft, nontender, nondistended, normal active bowel sounds. EXTREMITIES: Normal range of motion. No edema. SKIN: Warm, dry, no rash. NEURO: No focal deficits. Alert and oriented x3. sound sensitivity with headache pain to sides back of head and pressure behind eyes, associated nausea and sound sensitivity, cranial nerves II-XII intact with no deficit, gait steady, reports no dizziness. [place]
[2024-02-05] MEDS: KETOROLAC (*BKC) 60 MG/2 ML VIAL IM (17:02)
== END 2024-02-05 17:39 | disposition home or self-care (01) ==
PROVIDERS: Emergency Provider Registered Nurse; PCP Family Medicine
DX: G43.909 Migraine, unspecified, not intractable, without status migrainosus (principal); F17.210 Nicotine dependence, cigarettes, uncomplicated; F17.290 Nicotine dependence, other tobacco product, uncomplicated; J45.990 Exercise induced bronchospasm
CPT/HCPCS: 96372; 99213; G0463; J1885

== ENCOUNTER 2024-02-11 19:12 | Emergency (ER) | payer OTHER, SELFPAY ==
[2024-02-11 19:24] VITALS: BP 114/76; PULSE 77; RESP 20; TEMP 37.3; O2SAT 100
== END 2024-02-11 19:39 | disposition left against medical advice (07) ==
LOC: EXPBETH 19:14
PROVIDERS: Emergency Provider Registered Nurse; PCP Family Medicine
DX: Z53.21 Procedure and treatment not carried out due to patient leaving prior to being seen by health care provider (principal)
CPT/HCPCS: 99199

== ENCOUNTER 2024-03-26 10:51 | Emergency (ER) | payer OTHER, SELFPAY ==
[2024-03-26 11:00] VITALS: BP 105/85; PULSE 78; RESP 16; TEMP 36.9; O2SAT 100
--- NOTE | 2024-03-26 11:22 | ED_ITS ---
HPI - URI/Sore Throat General Chief Complaint: Upper Respiratory Infection Stated Complaint: Sore Throat/Diarrhea/Nausea History of Present Illness HPI Narrative: 33-year-old female presented for complaint of cough and sore throat for 2 days. Endorses runny nose, nausea, decreased appetite and painful cough. States she has ear pain always. Not taking anything for symptoms. Denies sob, wheezing, fever or lethargy. Related Data Home Medications ?Medication ?Instructions ?Recorded ?Confirmed ?Last Taken ?Type albuterol sulfate 90 mcg/actuation inhalation 02/05/24 Unknown History aerosol inhaler sumatriptan succinate 50 mg tablet mg PO 02/05/24 Unknown History tramadol 50 mg tablet mg 02/05/24 Unknown History etonogestrel 0.12 mg-ethinyl vag ring vaginal 03/26/24 Unknown History estradiol 0.015 mg/24 hr vaginal ring (uRy) Allergies Allergy/AdvReac Type Severity Reaction Status Date / Time nickel Allergy Intermediate Swelling Verified 03/26/24 10:54 acetaminophen AdvReac Intermediate Confusion Verified 03/26/24 10:54 oxycodone AdvReac Intermediate Confusion Verified 03/26/24 10:54 Review of Systems Review of Systems: per HPI [facility] Past Medical History Medical History Exercise-induced asthma Hx of migraines Lipoma removed from upper back Right otitis media Kidney stone Surgical History Surgical History 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 EYES: conjunctivae clear ENT: Mucous membranes moist. bilateral TMs erythematous, bulging and intact; canal not erythematous, no drainage; no tragal tenderness. Oropharynx erythematous without lesions. Tonsils absent No drooling, no hoarseness, no trismus, uvula midline. No tripod positioning, hot potato voice, or soft palate swelling. NECK: Supple. No lymphadenopathy CHEST: Clear to auscultation, breath sounds equal. No respiratory distress, speaks in full sentences. HEART: Regular rate and rhythm. No murmur heard. SKIN: Warm, dry, no rash. NEURO: Alert and oriented x3. Course Course Emergency Course: Patient is aware of diagnosis, understands and agrees to treatment plan. Anticipatory guidance given. Patient agrees to follow-up as directed and is aware of reasons to seek care at the emergency department. Portions of this record may have been created with voice recognition software Level of Care: Express Care Visit Vital Signs Vital signs: Vital Signs Temperature 98.4 F 03/26/24 11:00 Pulse Rate 78 03/26/24 11:00 Respiratory Rate 16 03/26/24 11:00 Blood Pressure 105/85 03/26/24 11:00 Pulse Oximetry 100 03/26/24 11:00 Oxygen Delivery Room Air 03/26/24 11:00 Temperature 98.4 F 03/26/24 11:00 Pulse Rate 78 03/26/24 11:00 Respiratory Rate 16 03/26/24 11:00 Blood Pressure 105/85 03/26/24 11:00 Pulse Oximetry 100 03/26/24 11:00 Oxygen Delivery Room Air 03/26/24 11:00 MDM - URI/Sore Throat MDM Narrative Medical decision making narrative: Neg strep result reviewed with pt. Treat for bilateral AOM. Advise supportive treatments. Patient is appropriate for outpatient treatment and follow-up. Differential Diagnosis Differential diagnosis: Likely upper respiratory infection, viral infection and pharyngitis Lab Data Labs: Lab Results 03/26/24 Range/Units 11:29 POC Grp A Strep Screen Negative (Negative) Discharge Plan Discharge Clinical Impression: Otitis media Patient Disposition: Home, Self-Care Condition: Stable Instructions: Antibiotic Form, Ear Infection (ED) Additional Instructions: Rapid strep swab was negative today You will be notified in a few days if the culture comes back positive for strep if symptoms are due to a viral illness, it is not treated with antibiotics. Viral symptoms can be present for up to 10-14 days. take antibiotic as directed for infection Recommend Flonase spray and Zyrtec for sinus congestion Cough syrup may cause drowsiness; avoid driving or take it at night time. Tylenol every 8 hours as needed for pain/fever Soft foods, cool liquids, warm tea. Gargle with warm saltwater twice a day. Chloraseptic spray and throat lozenges. Rest and stay hydrated. --Follow up with your PCP --Go to the ER immediately if you cannot swallow your saliva, trouble breathing/wheezing, throat swelling, pain is persistent and severe Patient Language: Kazakh Prescriptions: New amoxicillin-pot clavulanate 875-125 mg tablet 1 tablet PO Q12H 7 Days Qty: 14 0RF No Action sumatriptan succinate 50 mg tablet PO albuterol sulfate 90 mcg/actuation HFA aerosol inhaler INHALATION tramadol 50 mg tablet ondansetron 4 mg tablet,disintegrating 4 mg PO Q6H PRN (Reason: nausea and vomiting) Qty: 20 0RF etonogestrel-ethinyl estradiol [EluRyng] 0.12-0.015 mg/24 hr ring VAGINAL Follow-up/Referrals: Jada,Marco Morales MD [Primary Care Provider] - Stand Alone Forms: Work/School Release IP Time of Disposition: 11:28
[2024-03-26 11:35] LABS: EDSTREPNEGPOS1 Negative (Negative)
== END 2024-03-26 11:28 | disposition home or self-care (01) ==
PROVIDERS: Emergency Provider Nurse Practitioner Family; PCP Family Medicine
DX: H66.93 Otitis media, unspecified, bilateral (principal); J45.990 Exercise induced bronchospasm; F17.210 Nicotine dependence, cigarettes, uncomplicated; F17.290 Nicotine dependence, other tobacco product, uncomplicated
CPT/HCPCS: 87081; 87880; 99213; G0463

== ENCOUNTER 2024-12-13 16:23 | Emergency (ER) | payer OTHER, SELFPAY ==
--- OUTSIDE RECORDS SUMMARY | 2024-12-13 16:27 | XMS_ITS | Clinical Summary ---
Author Organization [facility] Address [address] [place] [address] Care Team Providers Care Improvement Specialist Name Role Phone Marco Elias MD Primary Care Provider [phone] Source Comments [facility],non-owned Affiliates and Associated Physician Practices is amultiple site organization consisting of ambulatory clinics and hospital sitesin [place], [place], [place] and [place]. This disclosure is being madepursuant to the Care Everywhere program and may not contain all information available regarding this patient. Last updated 18.[facility] Allergies Active Allergy Reactions Criticality Noted Date Comments Acetaminophen Other Medium 08/03/2021 Nickel Rash Medium 12/19/2016 Oxycodone Other Medium 08/03/2021 Oxycodone-Acetaminophen Other,Vomiting Low 12/20/19 17 Got real pale and felt horrible Medications * Be aware that medications may not be up to date on this document. Alwaysverify current medications with the patient. No known medications Active Problems Problem Noted Date Diagnosed Date Syncope, near 12/09/2024 Onychomycosis 07/13/2020 Assessment & Plan (07/13/2020 5:54 PM CDT): -improved, discussed chronic nature -continue lamisil, switch to pulse dosing 250 mg BID x 1 week per mo, plan additional 4-6 mo -discussed risk allergies, liver damage with lamisil, rec not drinking alcohol while on medication. Longitudinal melanonychia 2020 Assessment & Plan (2020 10:06 PM IN STORE REPRESENTATIVE): favor traumatic or infectious etiology over neoplasm - nail clipping for fungus done today, will call with results - photos and measurements taken today, monitor - consider nail matrix biopsy if fungal cultures negative and not improving EIC (epidermal inclusion cyst) 2020 Assessment & Plan (2020 10:00 PM IN STORE REPRESENTATIVE): L neck - Discussed diagnosis, etiology, clinical course, treatment options, and expectations. - patient wishes to surgically remove - schedule excision clinic Acute pyelonephritis 09/14/2019 Hydroureteronephrosis 09/14/2019 Overview (07/13/2020): Added automatically from request for surgery [id number] Lymphadenopathy 07/03/2018 Pain of toe 02/08/2016 Esophageal reflux 10/10/2015 Peptic ulcer 07/26/2015 Overview (08/12/2020): Note: ?? 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 Other ill-defined and unknow n causes of morbidity and mortality 04/29/2014 Encounters Date Type Department Care Team Description 12/09/2024 3:40 PM CDT Office Visit [facility] - Cardiology [address], [facility] [address] [place] [id number] Suki Trammell MD Syncope, near (Primary Dx); Other chest pain; Lightheadedness 12/09/2024 Travel from Last 3 Months Immunizations Immunization Administration Dates Next Due DTP, HISTORIC VACCINE 12/03/1996, 993,06/03/1992,1991,1991 FLU VACCINE TRI IIV3 SPLIT P F IM (FLUVIRIN) 05/26/2014 HEP B VACCINE, PED/ADOL 04/02/1993,1991, HIB VACCINE 08/19/1992, 3,1991,1991 Human Papilloma Virus Lucie valent Vaccine 01/14/2007 MMR VACCINE 08/19/1992,06/03/1992 POLIO OPV 12/03/1996, 3,06/03/1992,1991,1991 TDAP (7yrs+) 04/03/2017 TDAP, HISTORIC VACCINE 11/12/2014,01/14/2007 Social History Tobacco Use Types Packs/Day Years Used Date Smoking Tobacco: Former Cigarettes Smokeless Tobacco: Current Tobacco Cessation:Ready to Q uit: Not Asked; Counseling Given: Not Answered Alcohol Use Standard Drinks/Week Comments Not Currently 0 (1 standard drink = 0.6 oz pur e alcohol) AUDIT-C Answer Date Recorded Q1: How often do you have a drink containing alc ohol? Never 2020 Average Number of Drinks Not on file 021 Frequency of Binge Drinking Not on file 04/17 Comments Unknown Sex and Gender Information Value Date Recorded Sex Assigned at Not on file Legal Sex Female 7:37 AM CDT Gender Identity Not on file Sexual Orientation Not on file Last Filed Vital Signs Vital Sign Reading Time Taken Comments Blood Pressure 114/68 12/09/2024 4:01 PM CDT Pulse 83 12/09/2024 4:01 PM CDT Temperature 36.8 C (98.2 F) 04/12/2023 2:47 PM IN STORE REPRESENTATIVE Respiratory Rate 18 04/12/2023 2:47 PM IN STORE REPRESENTATIVE Oxygen Saturation 98% 12/09/2024 4:01 PM CDT Inhaled Oxygen Concentration - - Weight 59.9 kg (132 lb) 12/09/2024 4:01 PM CDT Height 168.9 cm (5' 6.5) 12/09/2024 4:01 PM CDT Body Mass Index 20.99 12/09/2024 4:01 PM CDT Plan of Treatment Upcoming Encounters Date Type Department Care Team (Latest Contact Info) Description 12/17/2024 12:05 PM CDT Hospital Encounter [facility] [address] [place] [address] Stanley Mae MD [address] [place] [id number] Cardiac Catheterization 12/17/2024 12:05 PM CDT - 12/17/2024 12:58 PM CDT Surgery [facility] - Cardiac Leasing Property Manager [address] [place] [address] Stanley Mae MD [address] [place] [id number] Loop Recorder Implant 03/03/2025 9:40 AM IN STORE REPRESENTATIVE Office Visit [facility] - Cardiology [address] [place] [phone] Suki Trammell MD [address] [place] [id number] Health Maintenance Due Date Last Done Comments HIV SCREENING 2006 HPV VACCINE (2 - 3-dose series) 02/11/2007 01/14/2007 PNEUMOCOCCAL VACCINE (1 of 2 - PCV) 2010 COVID-19 VACCINE (1 - season) 2023 DEPRESSION SCREENING 04/16/2024 INFLUENZA VACCINE (#1) 2024 05/26/2014 PAP SMEAR 02/28/2026 02/28/2023, 08/28/2019 DTAP/TDAP/TD VACCINES (9 - Td or Tdap) 04/03/2027 04/03/2017, 11/12/2014, 01/14/2007, Additional history exists ZOSTER VACCINE (1 of 2) 2041 HIB VACCINE Completed 08/19/1992, 05/17, 1991, Additional history exists HEPATITIS B VACCINE Completed 04/02/1993, 1991, 1991 HEPATITIS C SCREENING Completed 12/09/2020 MENINGOCOCCAL (Group B) VACCINE SHARED DECISION-MAKING Aged Out No longer eligible based on patient's age to complete this topic MENINGOCOCCAL GROUPS A/C/Y/W VACCINE Aged Out No longer eligible based on patient's age to complete this topic Procedures Procedure Name Priority Date/Time Associated Diagnosis Comments EKG 12-LEAD Routine 12/09/2024 4:06 PM CDT Syncope, near Other chest pain Lightheadedness from Last 3 Months Insurance [facility] Care Teams Improvement Specialist Relationship Specialty Start Date End Date Marco Elias MD [address] [address] PCP - General Family Medicine 04/12/23
--- OUTSIDE RECORDS SUMMARY | 2024-12-13 16:27 | XMS_ITS | Encounter Summary ---
Author Organization [facility] Address [address] [place] [address] Phone Care Team Providers Care Pbx Manager Name Role Phone Marco Elias MD Primary Care Provider [phone] Reason for Visit * Reason Comments Medication Refill Encounter Details Date Type Department Care Team (Late st Contact Info) Description 04/21/2022 Refill [facility] - Family Medicine - [address] [place] [address] Marco Elias MD [address] [address] Medication Refill Social History Tobacco Use Types Packs/Day Years Used Date Smoking Tobacco: Former Cigarettes 0.3 6 Smokeless Tobacco: Former Comments:5 wks ago Alcohol Use Standard Drinks/Week Comments Yes 0 (1 standard drink = 0.6 oz pur e alcohol) 1x monthly Education Answer Date Recorded What is the highest level of school you have completed or the highest degree you have received? 12th grade 11/22/2020 Sexually Active Control Partners Comments Yes None Male Comments No Sex and Gender Information Value Date Recorded Sex Assigned at Not on file Legal Sex Female 11:06 PM CDT Gender Identity Not on file Sexual Orientation Not on file Occupation Industry Job Start Date Job End Date sales Not on file Not on file Not on file documented as of this encounter Miscellaneous Notes * Telephone Encounter - Blossom Kiser RN - 04/21/2022 10:57 AM CST PRN medication requires review from provider Per nursing clinical judgement, provider to review and approve the medication(s) order(s) if appropriate. Requested Prescriptions Pending Prescriptions Disp Refills albuterol 108 (90 Base) MCG/ACT Aerosol Solution [Pharmacy Med Name: ALBUTEROL HFA INH (200 PUFFS)8.5GM] 8.5 g 1 Sig: INHALE 1 TO 2 PUFFS BY MOUTH EVERY 6 HOURS NEEDED FOR COUGH Short Acting Inhaled Beta-Agonists Protocol Passed - 04/21/2022 8:34 AM Passed - Visit with relevant provider in past 12 months or upcoming 90 days Recent Visits Date Type Provider Dept 02/14/22 Office Visit Ricky Osborn APRN, [facility] 11/10/21 [facility] Showing recent visits within past 365 days and meeting all other requirements Future Appointments No visits were found meeting these conditions. Showing future appointments within next 90 days and meeting all other requirements IT ADMINISTRATION MANAGER documented in this encounter Plan of Treatment Upcoming Encounters Date Type Department Care Team (Late st Contact Info) Description 12/24/2024 1:00 PM CDT [facility] Family [facility] - [address] [place] [address] Marco Elias MD [address] [address] documented as of this encounter Visit Diagnoses Not on filedocumented in this encounter Additional Health Concerns Infection Onset Date Last Indicated Resolved Time COVID - 19 02/12/2023 02/13/2023 02/23/2023 12:1 6 AM CREDIT ADMINISTRATION MANAGER COVID - 19 07/24/2023 07/24/2023 07/24/2023 3:41 AM CDT C. difficile Rule-Out 10/12/2023 10/12/20232023 12:16 AM CDT documented as of this encounter Care Teams Pbx Manager Relationship Specialty Start Date End Date Marco Elias MD [address] [address] PCP - General Family Medicine 11/22/20 documented as of this encounter
--- OUTSIDE RECORDS SUMMARY | 2024-12-13 16:27 | XMS_ITS ---
Author Organization [facility] Address [address] [facility], [address] [address] Phone Care Team Providers Care Talent Buyer Name Role Phone Marco Elias MD Primary Care Provider [phone] [facility] Chronic Condition Monitoring Status:Enrolled (Active) Start date:03/28/2023 Enrollment date:03/29/2023 Current support & services provided:Asthma Management Related social drivers of health:Intimate Partner Violence, Social Connections, Alcohol Use, Tobacco Use, Financial Resource Strain,Depression, Stress, Physical Activity, Food Insecurity, Transportation Needs, Housing Stability, Utilities Continued Care and Services Coordination
--- OUTSIDE RECORDS SUMMARY | 2024-12-13 16:27 | XMS_ITS | Encounter Summary ---
Author Organization [facility] Address [address] [place] [address] Phone Care Team Providers Care Hot Iron Worker Name Role Phone Marco Elias MD Primary Care Provider [phone] Reason for Visit * Reason Onset Date Comments Advice Only 08/18/2024 Encounter Details Date Type Department Care Team (Late st Contact Info) Description 08/18/2024 Telephone [facility] [address] [place] [address] Marco Elias MD [address] [address] Advice Only Social History Tobacco Use Types Packs/Day Years Used Date Smoking Tobacco: Former Cigarettes 0.3 6 Smokeless Tobacco: Former Comments:5 wks ago Alcohol Use Standard Drinks/Week Comments Not Currently 0 (1 standard drink = 0.6 oz pur e alcohol) 1x monthly [facility] Utilities Answer Date Recorded In the past 12 months has [employer], gas, oil, or water company threatened to shut off services in your home? No 08/19/2024 Social Connection and Isolation Panel Answer Date Recorded In a typical week, how many times do you talk on the phone with family, friends, or neighbors? More than three times a week 08/19/2024 How often do you get togethe r with friends or relatives? Once a week 08/19/2024 How often do you attend chur ch or pentecostalism services? 1 to 4 times per year 08/19/2024 Do you belong to any clubs o r organizations such as worship groups, unions, fraternal or athletic groups, or school groups? No 08/19/2024 How often do you attend meet ings of the clubs or organizations you belong to? Never 08/19/2024 Are you , , di vorced, , never , or living with a partner? Living with partner 08/19/2024 AUDIT-C Answer Date Recorded Q1: How often do you have a drink containing alcohol? Monthly or less 08/19/2024 Q2: How many drinks containi ng alcohol do you have on a typical day when you are drinking? Patient does not drink Q3: How often do you have si x or more drinks on one occasion? Never 08/19/2024 Overall Financial Resource Strain (CARDIA) Answe r Date Recorded How hard is it for you to pa y for the very basics like food, housing, medical care, and heating? Somewhat hard 08/19/2024 PHQ-2 Answer Date Recorded Total Score - Questions 1-9 0 09/2024 [facility] - Occupational Stress Questionnaire Answer Date Recorded Do you feel stress - tense, restless, nervous, or anxious, or unable to sleep at night because your mind is troubled all the time - these days? Rather much 08/19/2024 Exercise Vital Sign Answer Date Recorde d On average, how many days pe r week do you engage in moderate to strenuous exercise (like a brisk walk)? 6 days 08/19/2024 On average, how many minutes do you engage in exercise at this level? 150+ min 08/19/2024 Hunger Vital Sign Answer Date Recorded Within the past 12 months, y ou worried that your food would run out before you got the money to buy more. Sometimes true Within the past 12 months, t he food you bought just didn't last and you didn't have money to get more. Sometimes true 09/2024 PRAPARE - Transportation Answer Date Re corded In the past 12 months, has l ack of transportation kept you from medical appointments or from getting medications? No 0509/2024 In the past 12 months, has l ack of transportation kept you from meetings, work, or from getting things needed for daily living? No 08/19/2024 Housing Stability Vital Sign Answer Norman e Recorded In the last 12 months, was t here a time when you were not able to pay the mortgage or rent on time? No 05/04/2023 In the last 12 months, how many places have you lived? 1 05/04/2023 In the last 12 months, was t here a time when you did not have a steady place to sleep or slept in a mcc (including now)? No 05/04/2023 Housing Stability Vital Sign Answer Norman e Recorded In the last 12 months, was t here a time when you were not able to pay the mortgage or rent on time? Yes 08/19/2024 In the past 12 months, how m any times have you moved where you were living? 0 08/19/2024 At any time in the past 12 m [facility], were you homeless or living in a mcc (including now)? No 08/19/2024 Education Answer Date Recorded What is the [...] on file documented as of this encounter Functional Status * AUDIT-C Score Answer Date of Assessment Author 1 08/19/2024 8:41 AM CDT [facility] * Q1: How often do you have a drink containing alcohol? Answer Date of Assessment Author Monthly or less 08/19/2024 8:41 AM CDT [facility] * Q2: How many drinks containing alcohol do you have on a typical day when you are drinking? Answer Date of Assessment Author Patient does not drink 08/19/2024 8:41 AM CDT [facility] * Q3: How often do you have six or more drinks on one occasion? Answer Date of Assessment Author Never 08/19/2024 8:41 AM CDT [facility] * Question Answer Date of Assessment Author Little interest or pleasure in doing things Not at all 08/19/2024 8:43 AM CDT Sonia Lucero MA Feeling down, depressed, or hopeless Not at all 08/19/2024 8:43 AM CDT Sonia Lucero MA * Over the past 2 weeks, how often have you been bothered by any of the following problems? Question Answer Date of Assessment Author Patient Health Questionnaire -2 Score 0 08/19/2024 8:43 AM CDT Sonia Lucero MA documented as of this encounter Miscellaneous Notes * Telephone Encounter - Aliya Goodrich - 08/18/2024 9:59 PM CDT Symptom: Toenail Symptoms Outcome: Schedule an urgent appointment within same day Reason: Redness The caller rejected this outcome. Caller Denied: * Uncontrolled bleeding documented in this encounter Plan of Treatment Upcoming Encounters Date Type Department Care Team (Late st Contact Info) Description 12/24/2024 1:00 PM CDT Office Visit [facility] - Family [facility] [address] [place] [address] Marco Elias MD [address] [address] documented as of this encounter Visit Diagnoses Not on filedocumented in this encounter Additional Health Concerns Assessment Noted Time PHQ-9 Depression Total Score: 0 02/14/20 23 4:18 PM CDT documented as of this encounter Care Teams Hot Iron Worker Relationship Specialty Start Date End Date Marco Elias MD [address] [address] PCP - General Family Medicine 11/22/20 documented as of this encounter
--- OUTSIDE RECORDS SUMMARY | 2024-12-13 16:27 | XMS_ITS | Encounter Summary ---
Author Organization [facility] Address [address] [place] [address] Phone Care Team Providers Care Catheter Builder Name Role Phone Marco Elias MD Primary Care Provider [phone] Reason for Visit * Reason Comments Medication Refill Encounter Details Date Type Department Care Team (Late st Contact Info) Description 12/21/2020 Refill [facility] - Family Medicine [facility] [address] [place] [address] Marco Elias MD [address] [address] Medication Refill Social History Tobacco Use Types Packs/Day Years Used Date Smoking Tobacco: Former Cigarettes 0.3 6 Smokeless Tobacco: Former Comments:5 wks ago Alcohol Use Standard Drinks/Week Comments No 0 (1 standard drink = 0.6 oz pur e alcohol) monthly Education Answer Date Recorded What is [...] file Not on file Not on file COVID-19 Exposure Response Date Recorded In the last month, have you been in contact with someone who was confirmed or suspected to have Coronavirus / COVID-19? No / Unsure 12/23/2020 9:53 AM CDT documented as of this encounter Miscellaneous Notes * Telephone Encounter - Blossom Kiser RN - 12/22/2020 2:38 PM CDT PRN medication requires review from provider Per nursing clinical judgement, provider to review and approve the medication(s) order(s) if appropriate. Requested Prescriptions Pending Prescriptions Disp Refills albuterol 108 (90 Base) MCG/ACT Aerosol Solution [Pharmacy Med Name: ALBUTEROL HFA INH (200 PUFFS)8.5GM] 8.5 g 1 Sig: INHALE 1 TO 2 PUFFS BY MOUTH EVERY 6 HOURS NEEDED FOR WHEEZING Short Acting Inhaled Beta-Agonists Protocol Passed - 12/21/2020 10:30 AM Passed - Visit with relevant provider in past 12 months or upcoming 90 days Recent Visits Date Type Provider Dept 11/22/20 Office Visit Marco Elias MD [facility] Showing recent visits within past 365 days and meeting all other requirements Future Appointments Date Type Provider Dept 12/23/20 Appointment Ricky Osborn APN, [employer] [facility] Showing future appointments within next 90 days and meeting all other requirements documented in this encounter Plan of Treatment Upcoming Encounters Date Type Department Care Team (Late st Contact Info) Description 12/24/2024 1:00 PM CDT Office Visit [facility] - Family Medicine - [address] [place] [address] Marco Elias MD [address] [address] documented as of this encounter Visit Diagnoses Not on filedocumented in this encounter Additional Health Concerns Infection Onset Date Last Indicated Resolved Time COVID - 19 03/17/2022 03/17/2022 03/17/2022 4:12 PM QUICK TECHNICIAN COVID - 19 Confirmed 03/17/2022 03/17/2022 022 12:16 AM QUICK TECHNICIAN COVID - 19 02/12/2023 02/13/2023 02/23/2023 12:1 6 AM QUICK TECHNICIAN COVID - 19 07/24/2023 07/24/2023 07/24/2023 3:41 AM CDT C. difficile Rule-Out 10/12/2023 10/12/20232023 12:16 AM CDT documented as of this encounter Care Teams Catheter Builder Relationship Specialty Start Date End Date Marco Elias MD [address] [address] PCP - General Family Medicine 11/22/20 documented as of this encounter
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
[2024-12-13 16:31] VITALS: BP 121/78; PULSE 98; RESP 20; TEMP 37.1; O2SAT 100
--- NOTE | 2024-12-13 16:50 | ED_ITS ---
HPI - URI/Sore Throat General Chief Complaint: Upper Respiratory Infection Stated Complaint: throat and chest hurts, feels fainted, cough Time Seen by Provider: 12/13/24 16:51 History of Present Illness HPI Narrative: 34-year-old female presented for complaint of sore throat, headache, body aches, sinus congestion, cough, fever/chills. onset today. Started with a runny nose yesterday. Cough causes throat pain and chest tightness. Denies sob, wheezing, n/v/d. Not taking anything for symptoms. Related Data Allergies Allergy/AdvReac Type Severity Reaction Status Date / Time nickel Allergy Intermediate Swelling Verified 12/13/24 16:46 acetaminophen AdvReac Intermediate Confusion Verified 12/13/24 16:46 oxycodone AdvReac Intermediate Confusion Verified 12/13/24 16:46 Review of Systems Review of Systems: CONSTITUTIONAL: reports body aches, fever, chills, or sweats. EYES: Denies visual changes, redness, or discharge. ENT: reports sore throat rhinorrhea, congestion, Denies otalgia. CARDIOVASCULAR: Denies chest pain, palpitations, or edema. RESPIRATORY: Denies dyspnea. GASTROINTESTINAL: Denies abdominal pain, nausea, vomiting, or diarrhea. 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 EYES: conjunctivae clear ENT: Mucous membranes moist. TMs pearly rizzo with normal light reflex bilaterally; no tragal tenderness. Oropharynx mildly erythematous without lesions. Tonsils not enlarged and without exudate. No drooling, no hoarseness, no trismus, uvula midline. No tripod positioning, hot potato voice, or soft pal ate swelling. NECK: Supple. No lymphadenopathy CHEST: Clear to auscultation, breath sounds equal. HEART: Regular rate and rhythm. No murmur heard. SKIN: Warm, dry, no rash. NEURO: Alert and oriented x3. Course Course Emergency Course: Patient is aware of diagnosis, understands and agrees to treatment plan. Anticipatory guidance given. Patient agrees to follow-up as directed and is aware of reasons to seek care at the emergency department. Portions of this record may have been created with voice recognition software Level of Care: Express Care Visit Vital Signs Vital signs: Vital Signs Temperature 98.8 F 12/13/24 16:31 Pulse Rate 98 12/13/24 16:31 Respiratory Rate 20 12/13/24 16:31 Blood Pressure 121/78 12/13/24 16:31 Pulse Oximetry 100 12/13/24 16:31 Oxygen Delivery Room Air 12/13/24 16:31 Temperature 98.8 F 12/13/24 16:31 Pulse Rate 98 12/13/24 16:31 Respiratory Rate 20 12/13/24 16:31 Blood Pressure 121/78 12/13/24 16:31 Pulse Oximetry 100 12/13/24 16:31 Oxygen Delivery Room Air 12/13/24 16:31 MDM - URI/Sore Throat MDM Narrative Medical decision making narrative: negative flu, COVID, strep. Discussed physical exam findings. Advised supportive measures and signs/symptoms to go to the ER. Pt is appropriate for outpt treatment and f/u. Differential Diagnosis Differential diagnosis: Likely upper respiratory infection, sinusitis, viral infection, bronchitis, influenza and pharyngitis Discharge Plan Discharge Clinical Impression: Viral infection Patient Disposition: Home Condition: Stable Instructions: Antibiotic Form, Upper Respiratory Infection (ED) Additional Instructions: Your rapid covid/flu test was negative today. It may be too early to detect the virus, therefore we recommend retesting at home in 1-2 days Continue to follow general precautions: frequent handwashing, wear a mask, isola te/social distance, and avoid crowds if you have a fever. You must be fever free for 24 hours without the use of fever reducing medication (Tylenol/ibuprofen) before returning to work/school/crowds. Rapid strep swab was negative today You will be notified in a few days if the culture comes back positive for strep, and appropriate antibiotics will be called in at that time. if symptoms are due to a viral illness, it is not treated with antibiotics. Viral symptoms can be present for up to 10-14 days. Recommendations: Flonase spray and Zyrtec for sinus congestion Cough syrup may cause drowsiness; avoid driving or take it at night time. Tylenol every 8 hours as needed for pain/fever Soft foods, cool liquids, warm tea. Gargle with warm saltwater twice a day. Chloraseptic spray and throat lozenges. Rest and stay hydrated. --Follow up with your PCP --Go to the ER immediately if you cannot swallow your saliva, trouble breathing/wheezing, throat swelling, pain is persistent and severe Patient Language: Mongolian Prescriptions: New prednisone 20 mg tablet 40 mg PO DAILY 4 Days Qty: 8 0RF Follow-up/Referrals: Jada,Marco Morales MD [Primary Care Provider, Unknown] Stand Alone Forms: Work/School Release IP
[2024-12-13 16:56] LABS: EDCOVIDSCREEN Negative (Negative); EDINFLUASCREEN Negative (Negative); EDINFLUBSCREEN Negative (Negative); EDSTREPNEGPOS1 Negative (Negative)
== END 2024-12-13 17:00 | disposition home or self-care (01) ==
PROVIDERS: Emergency Provider Nurse Practitioner Family; PCP Family Medicine
DX: B34.9 Viral infection, unspecified (principal); Z20.822 Contact with and (suspected) exposure to COVID-19; F17.210 Nicotine dependence, cigarettes, uncomplicated; F17.290 Nicotine dependence, other tobacco product, uncomplicated; J45.990 Exercise induced bronchospasm
CPT/HCPCS: 87081; 87426; 87804; 87880; 99213; G0463